=== PATIENT | male | born 1975 | race Hispanic/Latino ===

== ENCOUNTER 2017-05-20 01:38 | Emergency (ER) | payer OTHER ==
--- NOTE | 2017-05-20 02:25 | Emergency Department Report ---
HPI - General Time Seen by Provider: 05/20/17 02:02 - HPI HPI: This is a 41-year-old male who presents to the emergency department by EMS from home after he attempted to overdose on Flexeril and Tylenol. He took about 15 Flexeril pills and about 20 Tylenol pills at about 1:00 with the intent to harm himself. The patient is very sleepy when he arrives but is arousable and alert once woken up and says that his "girlfriend left me." There is no apparent other past medical history. He denies any alcohol or illicit drug use in combination with these medications. He did not receive anything for his symptoms in route. ED Past Medical Hx - Past Medical History Hx Hypertension: Yes Hx Diabetes: Yes (type 2) Additional medical history: high cholesterol - Surgical History Additional Surgical History: tonsils - Social History Smoking Status: Current Every Day Smoker Substance Use Type: Methamphetamines - Medications Home Medications: Home Medications Medication Instructions Recorded Confirmed Last Taken Type No Known Home Medications [No 05/20/17 05/20/17 Unknown History Reported Home Medications] ED Review of Systems ROS: Stated complaint: OVERDOSE Other details as noted in HPI Comment: All other systems reviewed and negative Constitutional: denies: chills, fever Eyes: denies: eye pain, eye discharge, vision change ENT: denies: ear pain, throat pain Respiratory: denies: cough, shortness of breath, wheezing Cardiovascular: denies: chest pain, palpitations Gastrointestinal: denies: abdominal pain, nausea, diarrhea Genitourinary: denies: urgency, dysuria Musculoskeletal: denies: back pain, joint swelling, arthralgia Skin: denies: rash, lesions Neurological: denies: headache, weakness, paresthesias Psychiatric: depression, suicidal thoughts. denies: auditory hallucinations, visual hallucinations, homicidal thoughts Physical Exam - Physical Exam Vital Signs: Vital Signs 05/20/17 02:03 Temperature 98.4 F Pulse Rate 90 Respiratory 18 Rate Blood Pressure 142/85 [Right] O2 Sat by Pulse 96 Oximetry Physical Exam: GENERAL: The patient is well-developed well-nourished. HENT: Normocephalic. Atraumatic. Patient has moist mucous membranes. EYES: Extraocular motions are intact. Pupils equal reactive to light bilaterally. NECK: Supple. Trachea is midline. CHEST/LUNGS: Clear to auscultation. There is no respiratory distress noted. HEART/CARDIOVASCULAR: Regular. There is no tachycardia. There is no gallop rub or murmur. ABDOMEN: Abdomen is soft, nontender. Patient has normal bowel sounds. There is no abdominal distention. Obese habitus. SKIN: Skin is warm and dry. NEURO: The patient is very fatigued and is sleeping but is arousable to any verbal stimuli and once awake is AAO 3 and able to answer questions appropriately. Once he has done answering questions, or if there is no further stimulation, the patient will go back to sleep. He is able to follow commands. Withdraws from painful stimuli. MUSCULOSKELETAL: There is no tenderness or deformity. There is no limitation range of motion. There is no evidence of acute injury. ED Course Vital Signs 05/20/17 02:03 Temperature 98.4 F Pulse Rate 90 Respiratory 18 Rate Blood Pressure 142/85 [Right] O2 Sat by Pulse 96 Oximetry ED Medical Decision Making - Lab Data Result diagrams: 05/20/17 02:22 05/20/17 02:22 - EKG Data -: EKG Interpreted by Ri EKG shows normal: sinus rhythm, axis, intervals, QRS complexes, ST-T waves ( flattened T waves) Rate: normal - EKG Data When compared to previous EKG there are: no significant change Interpretation: unchanged when compared t (10/05/16) - Medical Decision Making 41-year-old male presents after a suicide attempt by trying to take an excessive amount of Flexeril and Tylenol. He is very fatigued and/or sleepy but is easily arousable to verbal stimuli and otherwise cognizant, able to answer questions appropriately. Vital signs stable throughout his ED course. We called poison control who did not recommend any charcoal administration. He had a 2 hour Tylenol level of 75, a 4 hour Tylenol level of 45. As per poison control we will get a 9 hour level but overall the patient's Tylenol level is declining and therefore does not appear to require Acetadote. He has been reevaluated multiple times over multiple hours and he is even more awake and alert, texting on his phone. The rest of his labs are mostly unremarkable except for a urine drug screen that is positive for amphetamines. He has been made a 1013 secondary to his depression and suicidal ideation and attempt. He appears medically cleared for psychiatric placement. - Differential Diagnosis acetaminophen overdose, depression, bipolar disorder, substance abuse Critical Care Time: No Critical care attestation.: If time is entered above; I have spent that time in minutes in the direct care of this critically ill patient, excluding procedure time. ED Disposition Clinical Impression: Hypertension Qualifiers: Hypertension type: essential hypertension Qualified Code(s): I10 - Essential ( primary) hypertension Depression Qualifiers: Depression Type: unspecified Qualified Code(s): F32.9 - Major depressive disorder, single episode, unspecified Suicide attempt by acetaminophen overdose Qualifiers: Encounter type: initial encounter Qualified Code(s): T39.1X2A - Poisoning by 4- Aminophenol derivatives, intentional self-harm, initial encounter Overdose by acetaminophen Qualifiers: Encounter type: initial encounter Injury intent: intentional self-harm Qualified Code(s): T39.1X2A - Poisoning by 4-Aminophenol derivatives, intentional self-harm, initial encounter Overdose of muscle relaxant Qualifiers: Encounter type: initial encounter Injury intent: intentional self-harm Qualified Code(s): T48.202A - Poisoning by unspecified drugs acting on muscles, intentional self-harm, initial encounter Disposition: DC/TX-65 PSY HOSP/PSY UNIT Is pt being admited?: No Condition: Stable Instructions: Hypertension (ED) Referrals: PRIMARY CARE [Primary Care Provider] - 3-5 Days Time of Disposition: 05:57
[2017-05-20 02:38] LABS: Basophils % (Auto) 0.9 % (0.0-1.8); Eosinophils % (Auto) 1.4 % (0.0-4.3); Hematocrit 45.5 % (35.5-45.6); Hemoglobin 15.5 gm/dl (11.8-15.2); Mean Corpuscular HGB Conc 34 % (32-34); Mean Corpuscular Hemoglobin 30 pg (28-32); Mean Corpuscular Volume 87 fl (84-94); Platelet Count 188 K/mm3 (140-440); Red Blood Count 5.21 M/mm3 (3.65-5.03); Red Cell Distribution Width 12.8 % (13.2-15.2); White Blood Count 8.3 K/mm3 (4.5-11.0)
[2017-05-20 02:57] LABS: Alanine Aminotransferase 30 units/L (7-56); Albumin 3.8 g/dL (3.9-5); Albumin/Globulin Ratio 1.4 %; Alkaline Phosphatase 87 units/L (35-129); Anion Gap 19 mmol/L; BUN/Creatinine Ratio 23; Blood Urea Nitrogen 14 mg/dL (9-20); Calcium 8.7 mg/dL (8.4-10.2); Carbon Dioxide 24 mmol/L (22-30); Chloride 98.9 mmol/L (98-107); Glucose 196 mg/dL (75-100); Potassium 3.8 mmol/L (3.6-5.0); Sodium 138 mmol/L (137-145); Total Protein 6.6 g/dL (6.3-8.2)
[2017-05-20 02:59] LABS: INR 0.94 (0.87-1.13)
[2017-05-20 03:00] LABS: Partial Thromboplastin Time 26.4 Sec. (24.2-36.6)
[2017-05-20] MEDS ORDERED: NACL 0.9% 1000 ML 1,000 ML IV ONE (03:01)
[2017-05-20 04:31] LABS: Urine Drugs of Abuse Note Disclamer
[2017-05-20 04:49] LABS: Bilirubin,Urine SM (Negative); Blood,Urine NEG (Negative); Ketones,Urine TR mg/dL (Negative); Leukocyte Esterase,Urine TR (Negative); Mucus,Urine FEW /HPF; Nitrite,Urine NEG (Negative); Urobilinogen,Urine < 2.0 mg/dL (<2.0); WBC,Urine < 1.0 /HPF (0.0-6.0)
[2017-05-20 11:23] LABS: Alanine Aminotransferase 26 units/L (7-56); Albumin 3.6 g/dL (3.9-5); Albumin/Globulin Ratio 1.7 %; Alkaline Phosphatase 74 units/L (35-129); Total Protein 5.7 g/dL (6.3-8.2)
[2017-05-20 11:25] LABS: Bilirubin,Direct < 0.2 mg/dL (0-0.2)
[2017-05-21] MEDS ORDERED: MOTRIN PO ONE ×2 (14:00→14:01)
[2017-05-22 11:56] VITALS: BP 141/87
--- NOTE | 2017-05-22 12:31 | Consultation ---
History of Present Illness - Reason for Consult Consult date: 05/22/17 Reason for consult: Mental Health Evaluation Requesting physician: DONNY AUSTIN - Chief Complaint Chief complaint: "I was upset" - History of Present Psychiatric Illness This is a 41-year-old male who presents to the emergency department by EMS from home after he attempted to overdose on Flexeril and Tylenol. Today patient is irritable during the assessment. He stated that he should not be here. He stated that he did take multiple flexeril and tylenol because he got into an argument with his girlfriend. He stated that they broke up and he found out that she had sex with his friend. He stated once he find out about her having sex with his friend, he wanted to commit suicide. He stated over the last few weeks, they were having problems in their relationship. He stated that he felt "alone and hopeless" for weeks since the break up. He stated that they were living with her father, but had to move recently. He stated that her father does not want to take care of them anymore. He felt like his life was "over" recently, per the patient. He denies SI/HI's and AVH's. He denies sleep disturbance and a poor appetite. He stated that he uses "meth" often. He denies excessive alcohol consumption (etoh). He stated that he does not want to take any medications. Medications and Allergies Allergies Allergy/AdvReac Type Severity Reaction Status Date / Time No Known Allergies Allergy Verified 10/05/16 04:29 Home Medications Medication Instructions Recorded Confirmed Last Taken Type No Known Home Medications [No 05/20/17 05/20/17 Unknown History Reported Home Medications] Past psychiatric history - Past Medical History Past Medical History: diabetes, hypertension Past Surgical History: No surgical history - past Psychiatric treatment and history psychiatric treatment history: Denies a psy hx. Denies a fam psy hx. - Social History Social history: other (10th grade education, reside in a hotel) Mental Status Exam - Vital signs Last Vital Signs Temp 98.8 F 05/22/17 10:00 Pulse 110 H 05/22/17 10:00 Resp 28 H 05/22/17 10:00 BP 141/87 05/22/17 10:00 Pulse Ox 96 05/22/17 10:00 - Exam Narrative exam: MSE: Appearance: cooperative Behavior: regular eye contact Speech: regular rate and tone Mood: irritated Affect: congruent to mood Thought Process: circumstantial Thought Content: denies SI/HI's and AVH's Motor Activity: ambulatory Cognition: A/O x 3 Insight: variable Judgment: variable Results Result Diagrams: 05/20/17 02:22 05/20/17 02:22 All other labs normal. Assessment and Plan Assessment and plan: Impression: MDD severe type. Substance Use DO (amphetamines). Today patient is irritable during the assessment. He minimizes his actions. DDx: R/O Bipolar, Substance Induced Mood DO Recommendation/Plan: Continue 1013. Gather collateral to help determine proper dispo. Discussed risk/benefits of antidepressants.
[2017-05-22] MEDS ORDERED: GLUCOTROL PO ONE (14:00)
== END 2017-05-22 13:37 ==
LOC: EEVIPCON 01:38 → ED 01:38
DX: T39.1X2A Poisoning by 4-Aminophenol derivatives, intentional self-harm, initial encounter (principal); T48.202A Poisoning by unspecified drugs acting on muscles, intentional self-harm, initial encounter; F32.9 Major depressive disorder, single episode, unspecified; I10 Essential (primary) hypertension; E11.9 Type 2 diabetes mellitus without complications; E78.5 Hyperlipidemia, unspecified; F17.200 Nicotine dependence, unspecified, uncomplicated
CPT/HCPCS: 36415; 80053; 80074; 80307; 81001; 85025; 85610; 85730; 93005; 93010; 96360; 99285; G0480; 80320; 82962; J1815

== ENCOUNTER 2017-08-14 06:22 | Emergency (ER) | payer OTHER ==
[2017-08-14 06:56] VITALS: BP 173/105
[2017-08-14 07:55] LABS: Basophils # (Auto) 0.1 K/mm3 (0.0-0.1); Basophils % (Auto) 0.5 % (0.0-1.8); Eosinophils # (Auto) 0.1 K/mm3 (0.0-0.4); Eosinophils % (Auto) 0.8 % (0.0-4.3); Hematocrit 47.2 % (35.5-45.6); Hemoglobin 15.5 gm/dl (11.8-15.2); Lymphocytes # (Auto) 3.4 K/mm3 (1.2-5.4); Lymphocytes % (Auto) 25.6 % (13.4-35.0); Mean Corpuscular HGB Conc 33 % (32-34); Mean Corpuscular Hemoglobin 29 pg (28-32); Mean Corpuscular Volume 88 fl (84-94); Monocytes # (Auto) 0.6 K/mm3 (0.0-0.8); Monocytes % (Auto) 4.8 % (0.0-7.3); Platelet Count 238 K/mm3 (140-440); Red Blood Count 5.36 M/mm3 (3.65-5.03); Red Cell Distribution Width 12.7 % (13.2-15.2)
[2017-08-14 08:15] LABS: BUN/Creatinine Ratio 23; Blood Urea Nitrogen 16 mg/dL (9-20); Calcium 9.2 mg/dL (8.4-10.2); Hemolysis Index 18
--- NOTE | 2017-08-14 09:02 | XRay Report ---
ROUTINE CHEST, TWO VIEWS: HISTORY: Shortness of breath. The trachea, heart, mediastinal contour, lung loyd and bony thorax are unremarkable. IMPRESSION: Unremarkable chest x-ray.
== END 2017-08-14 16:17 | disposition left against medical advice (07) ==
LOC: ED 06:22
DX: J02.9 Acute pharyngitis, unspecified (principal); Z53.21 Procedure and treatment not carried out due to patient leaving prior to being seen by health care provider
CPT/HCPCS: 36415; 71020; 80048; 82962; 85025; 93005; 93010

== ENCOUNTER 2018-01-01 10:22 | Emergency (ER) | payer SELFPAY ==
[2018-01-01 10:29] VITALS: BP 156/104
[2018-01-01] MEDS ORDERED: NORCO 5/325 PO ONE (12:53)
[2018-01-01] MEDS ORDERED: TORADOL IM ONE (12:53)
--- NOTE | 2018-01-01 13:47 | Emergency Department Report ---
ED Extremity Problem HPI - General Chief complaint: Extremity Injury, Lower Stated complaint: SEVERE LEFT LEG PAIN Time Seen by Provider: 01/01/18 13:00 Source: patient Mode of arrival: Ambulatory Limitations: No Limitations - History of Present Illness Initial comments: 42-year-old male with a past medical history diabetes, hypertension, and elevated cholesterol presents to the hospital complaining of left lower back and groin pain 4-5 days. Pain is aching and constant and worse with movement, palpation, and standing. Pain is rated 8/10 in intensity. Patient denies nausea , vomiting, dysuria, hematuria, rash, fever, numbness, or weakness. No trauma reported. Patient denies leg edema or calf tenderness. He is concerned he is concerned because he has dilated superficial veins. Severity scale (0 -10): 5 - Related Data Home Medications Medication Instructions Recorded Confirmed Last Taken No Known Home Medications [No 05/20/17 05/20/17 Unknown Reported Home Medications] Allergies Allergy/AdvReac Type Severity Reaction Status Date / Time No Known Allergies Allergy Verified 10/05/16 04:29 ED Review of Systems ROS: Stated complaint: SEVERE LEFT LEG PAIN Other details as noted in HPI Comment: All other systems reviewed and negative ED Past Medical Hx - Past Medical History Previous Medical History?: Yes Hx Hypertension: Yes Hx Diabetes: Yes (type 2) Additional medical history: high cholesterol - Surgical History Past Surgical History?: Yes Additional Surgical History: tonsils - Social History Smoking Status: Current Every Day Smoker Substance Use Type: Alcohol - Medications Home Medications: Home Medications Medication Instructions Recorded Confirmed Last Taken Type No Known Home Medications [No 05/20/17 05/20/17 Unknown History Reported Home Medications] ED Physical Exam - General Limitations: No Limitations - Other Other exam information: General: No limitations, patient is alert in no acute distress Head exam: Atraumatic, normocephalic Eyes exam: Normal appearance, pupils equal reactive to light, extraocular movements intact ENT: Moist mucous membrane, normal oropharynx Neck exam: Normal inspection, full range of motion, no meningismus nontender Respiratory exam: Clear to auscultation bilateral, no wheezes, rales, crackles Cardiovascular: Normal rate and rhythm, normal heart sounds Abdomen: Soft, nondistended, and nontender, with normal bowel sounds, no rebound, or guarding Extremity: Full range of motion normal inspection no deformity. Left inguinal pain. No subcutaneous lymphadenopathy. : No penile discharge or scrotal tenderness Back: Normal Inspection, full range of motion, left lower back tenderness Neurologic: Alert, oriented x3, cranial nerves intact, no motor or sensory deficit Psychiatric: normal affect, normal mood Skin: Warm, dry, intact, no rash, abscess, or erythema ED Course Vital Signs 01/01/18 01/01/18 01/01/18 10:25 12:09 13:01 Temperature 97.5 F L Pulse Rate 100 H Respiratory 20 18 18 Rate Blood Pressure 156/104 O2 Sat by Pulse 99 Oximetry 01/01/18 13:02 Temperature Pulse Rate Respiratory 18 Rate Blood Pressure O2 Sat by Pulse Oximetry ED Medical Decision Making - Lab Data Lab Results 01/01/18 01/01/18 Range/Units 10:34 13:25 POC Glucose 146 H (70-105) Urine Color Yellow (Yellow) Urine Turbidity Clear (Clear) Urine pH 5.0 (5.0-7.0) Ur Specific [place] 1.024 (1.003-1.030) Urine Protein <15 mg/dl (Negative) mg/dL Urine Glucose (UA) 50 (Negative) mg/dL Urine Ketones Neg (Negative) mg/dL Urine Blood Neg (Negative) Urine Nitrite Neg (Negative) Urine Bilirubin Neg (Negative) Urine Urobilinogen < 2.0 (<2.0) mg/dL Ur Leukocyte Esterase Neg (Negative) Urine WBC (Auto) 7.0 H (0.0-6.0) /HPF Urine RBC (Auto) 7.0 (0.0-6.0) /HPF U Epithel Cells (Auto) < 1.0 (0-13.0) /HPF Urine Mucus Few /HPF - Medical Decision Making Patient received [place] and Toradol symptoms likely secondary to muscle strain. Very mild elevation in urine and RBC without urinary symptoms. Patient eloped prior to urine result was called by staff and states he will be returning but patient did not return. - Differential Diagnosis muscle strain, radiculopathy, renal colic, infection, lymphadenopathy Critical Care Time: No Critical care attestation.: If time is entered above; I have spent that time in minutes in the direct care of this critically ill patient, excluding procedure time. ED Disposition Clinical Impression: Strain of left inguinal muscle, Low back strain Disposition: ELOPED Is pt being admited?: No Condition: Stable Time of Disposition: 14:00
[2018-01-01 14:38] LABS: Bilirubin,Urine NEG (Negative); Blood,Urine NEG (Negative); Color,Urine Yellow (Yellow); Mucus,Urine FEW /HPF; Protein,Urine <15 mg/dL mg/dL (Negative); Urobilinogen,Urine < 2.0 mg/dL (<2.0)
== END 2018-01-01 19:06 | disposition left against medical advice (07) ==
LOC: ED 10:22
DX: S39.011A Strain of muscle, fascia and tendon of abdomen, initial encounter (principal); S39.012A Strain of muscle, fascia and tendon of lower back, initial encounter; I10 Essential (primary) hypertension; E11.9 Type 2 diabetes mellitus without complications; E78.00 Pure hypercholesterolemia, unspecified; F17.200 Nicotine dependence, unspecified, uncomplicated; X58.XXXA Exposure to other specified factors, initial encounter; Y93.89 Activity, other specified; Y92.89 Other specified places as the place of occurrence of the external cause; Y99.8 Other external cause status
CPT/HCPCS: 81001; 82962; 96372; 99283; J1885

== ENCOUNTER 2018-05-19 19:06 | Inpatient (IN) | payer MEDICARE, OTHER ==
[2018-05-19 20:17] LABS: Basophils # (Auto) 0.1 K/mm3 (0.0-0.1); Basophils % (Auto) 0.6 % (0.0-1.8); Eosinophils # (Auto) 0.2 K/mm3 (0.0-0.4); Eosinophils % (Auto) 1.7 % (0.0-4.3); Hematocrit 40.1 % (35.5-45.6); Hemoglobin 13.4 gm/dl (11.8-15.2); Lymphocytes # (Auto) 3.3 K/mm3 (1.2-5.4); Lymphocytes % (Auto) 25.8 % (13.4-35.0); Mean Corpuscular HGB Conc 34 % (32-34); Mean Corpuscular Hemoglobin 30 pg (28-32); Mean Corpuscular Volume 88 fl (84-94); Monocytes # (Auto) 0.8 K/mm3 (0.0-0.8); Monocytes % (Auto) 6.1 % (0.0-7.3); Platelet Count 214 K/mm3 (140-440); Red Blood Count 4.55 M/mm3 (3.65-5.03); Red Cell Distribution Width 12.9 % (13.2-15.2)
[2018-05-19] MEDS ORDERED: MORPHINE IV ONE (20:31)
[2018-05-19] MEDS ORDERED: ATIVAN IV ONE (20:31)
[2018-05-19] MEDS ORDERED: ZOFRAN IV ONE (20:31)
[2018-05-19] MEDS ORDERED: NITRO-BID 2% TP ONE (20:31)
[2018-05-19 20:56] LABS: BUN/Creatinine Ratio 19; Blood Urea Nitrogen 15 mg/dL (9-20); Calcium 9.1 mg/dL (8.4-10.2); Hemolysis Index 5
--- NOTE | 2018-05-19 20:56 | Emergency Department Report ---
HPI - General Chief Complaint: Dyspnea/Respdistress Time Seen by Provider: 05/19/18 19:58 - HPI HPI: Room 4 The patient is a 42-year-old male presenting with a chief complaint of chest pain and shortness of breath. The patient states she used some methamphetamines this morning orally and 5 6 hours later began developing left- sided chest pain associated with shortness of breath and nausea. Patient denies vomiting but admits to diaphoresis with this chest pain. Patient states he's had tingling in his feet. Patient gives his pain is scored 7-8/10. Patient states his last stress test was over 5 years ago but has never had a cardiac catheterization Location: [See above] Duration: [See above] Quality: Pain Severity: 7-8/10 Modifying factors: [see above] Context: [see above] Mode of transportation: [not driving] ED Past Medical Hx - Past Medical History Previous Medical History?: Yes Hx Hypertension: Yes Hx Diabetes: Yes (type 2) Additional medical history: high cholesterol - Surgical History Past Surgical History?: Yes Additional Surgical History: tonsils - Family History Family history: no significant - Social History Smoking Status: Current Every Day Smoker (1.5 pack per day) Substance Use Type: Alcohol (occasional), Methamphetamines (orally) - Medications Home Medications: Home Medications Medication Instructions Recorded Confirmed Last Taken Type No Known Home Medications [No 05/19/18 05/19/18 Unknown History Reported Home Medications] ED Review of Systems ROS: Stated complaint: DIFFICULTY BREATHING Other details as noted in HPI Constitutional: diaphoresis Eyes: denies: eye pain ENT: denies: throat pain Respiratory: shortness of breath Cardiovascular: chest pain Endocrine: no symptoms reported Gastrointestinal: nausea. denies: abdominal pain, vomiting Genitourinary: denies: dysuria Musculoskeletal: denies: back pain Neurological: paresthesias Physical Exam - Physical Exam Vital Signs: Vital Signs 05/19/18 19:50 Temperature 99.3 F Pulse Rate 115 H Respiratory 24 Rate Blood Pressure 122/80 Blood Pressure 122/80 [Left] O2 Sat by Pulse 97 Oximetry Physical Exam: GENERAL: The patient is well-developed well-nourished male sitting on a stretcher appearing fidgety. [] HEENT: Normocephalic. Atraumatic. Extraocular motions are intact. Patient has moist mucous membranes. NECK: Supple. Trachea midline CHEST/LUNGS: Clear to auscultation. There is no respiratory distress noted. HEART/CARDIOVASCULAR: Regular. There is tachycardia. There is no gallop rub or murmur. ABDOMEN: Abdomen is soft, nontender. Patient has normal bowel sounds. There is no abdominal distention. SKIN: There is no rash. There is no edema. There is no diaphoresis. NEURO: The patient is awake, alert, and oriented. The patient is cooperative. The patient has normal speech MUSCULOSKELETAL: There is no evidence of acute injury. ED Course Vital Signs 05/19/18 19:50 Temperature 99.3 F Pulse Rate 115 H Respiratory 24 Rate Blood Pressure 122/80 Blood Pressure 122/80 [Left] O2 Sat by Pulse 97 Oximetry ED Medical Decision Making - Lab Data Result diagrams: 05/19/18 20:00 Laboratory Tests 05/19/18 05/19/18 05/19/18 20:00 20:00 20:06 WBC 12.7 H RBC 4.55 Hgb 13.4 Hct 40.1 MCV 88 MCH 30 MCHC 34 RDW 12.9 L Plt Count 214 Lymph % (Auto) 25.8 [place] % (Auto) 6.1 Eos % (Auto) 1.7 Baso % (Auto) 0.6 Lymph # 3.3 [place] # 0.8 Eos # 0.2 Baso # 0.1 Seg Neutrophils % 65.8 Seg Neutrophils # 8.4 H Sodium 143 Potassium 3.2 L Chloride 106.6 Carbon Dioxide 22 Anion Gap 18 BUN 15 Creatinine 0.8 Estimated GFR > 60 BUN/Creatinine Ratio 19 Glucose 152 H Calcium 9.1 Total Creatine Kinase 701 H CK-MB (CK-2) 4.8 H CK-MB (CK-2) Rel Index 0.6 Troponin T < 0.010 - EKG Data -: EKG Interpreted by Me EKG shows normal: sinus rhythm Rate: tachycardia (112 bpm) - EKG Data When compared to previous EKG there are: previous EKG unavailable Interpretation: nonspecific ST-T wave jimbo (plan T waves in leads 2, V3, flat biphasic T waves in leads V4, V5, V6) - Radiology Data Radiology results: report reviewed (chest x-ray), image reviewed (chest x-ray) interpreted by me: Chest x-ray-no focal infiltrates, no pneumothorax [facility] [address] [place] [address] XRay Report Signed Patient: REMBERTO CHRISTIANSON MR#: [id number] : 1975 Acct:[id number] Age/Sex: 42 / M ADM Date: 05/19/18 Loc: ED Attending Dr: Ordering Physician: CHRISTOS CALDWELL MD Date of Service: 05/19/18 Procedure(s): XR chest routine 2V Accession Number(s): [id number] cc: CHRISTOS CALDWELL MD Fluoro Time In Minutes: FINAL REPORT PROCEDURE: Chest. TECHNIQUE: AP and lateral views. HISTORY: Shortness of breath . COMPARISON: No prior studies are available for comparison. FINDINGS: The heart and mediastinum appear normal. The lungs are clear and well expanded. There are no pleural effusions. The soft tissues and regional skeleton are unremarkable. IMPRESSION: No evidence of acute disease. Transcribed By: MRM Dictated By: RUBY LASSITER MD Electronically Authenticated By: RUBY LASSITER MD Signed Date/Time: 05/19/182052 DD/ 52 TD/TT: 05/19/182052 - Differential Diagnosis ACS, pericarditis, methamphetamine induced chest pain Critical care attestation.: If time is entered above; I have spent that time in minutes in the direct care of this critically ill patient, excluding procedure time. ED Disposition Clinical Impression: Chest pain, Methamphetamine abuse, Shortness of breath Disposition: OP ADMIT IP TO THIS HOSP Is pt being admited?: Yes Does the pt Need Aspirin: Yes Condition: Fair Instructions: Chest Pain (ED) Time of Disposition: 21:40 (hospitalist paged (Dr Martin))
[2018-05-19 21:37] LABS: Creatine Kinase MB 4.8 ng/mL (0.0-4.0)
[2018-05-19] MEDS ORDERED: ASPIRIN PO ONE (21:40)
[2018-05-19] MEDS ORDERED: SODIUM CHLORIDE FLUSH SYRINGE 10 ML IV PRN (23:08)
[2018-05-19] MEDS ORDERED: MORPHINE IV PRN (23:08)
[2018-05-19] MEDS ORDERED: APRESOLINE IV PRN (23:08)
--- NOTE | 2018-05-19 23:17 | History and Physical Report ---
History of Present Illness Date of examination: 05/19/18 Date of admission: 05/19/9018 Chief complaint: chest pain and shortness of breath. History of present illness: Pt is a 42 y.o. white male with PMHx of DM type 2, HTN, hyperlipidemia, amphetamine use disorder and chronic pain who presents to the ER with c/o chest pain and SOB x1 day. Pt states that the pain is located on the left side of the chest, level 7-8/10, associated with SOB and nausea. Patient denies radiation of the pain or vomiting but admits to diaphoresis, palpitation with the chest pain. According to the ER, pt admits to taking amphetamine today and the pain started 5-6hrs after ingestion. Pt admits to previous h/o chest pain and a stress test about 5 years ago, denies family history of heart disease. Past History Past Medical History: diabetes, hypertension, hyperlipidemia Past Surgical History: tonsillectomy Social history: other Family history: no significant family history Medications and Allergies Allergies Allergy/AdvReac Type Severity Reaction Status Date / Time No Known Allergies Allergy Verified 10/05/16 04:29 Home Medications Medication Instructions Recorded Confirmed Last Taken Type No Known Home Medications [No 05/19/18 05/19/18 Unknown History Reported Home Medications] Review of Systems Constitutional: sweats Cardiovascular: chest pain, shortness of breath Respiratory: shortness of breath Exam - Constitutional Vitals: Temp Pulse Resp BP Pulse Ox 99.3 F 114 H 26 H 122/72 99 05/19/18 19:50 05/19/18 21:10 05/19/18 21:00 05/19/18 21:10 05/19/18 21:00 - EENT Eyes: Present: EOM intact ENT: hearing intact - Neck Neck: Present: normal ROM - Respiratory Respiratory effort: normal Respiratory: bilateral: CTA - Cardiovascular Rhythm: regular - Extremities Extremities: pulses symmetrical, No edema, normal color - Abdominal Male genitourinary: Present: deferred - Rectal Rectal Exam: deferred - Integumentary Integumentary: Present: warm - Musculoskeletal Musculoskeletal: strength equal bilaterally, generalized weakness - Psychiatric Psychiatric: cooperative - Neurologic Neurologic: moves all extremities Results - Labs CBC & Chem 7: 05/19/18 23:38 05/19/18 23:38 Labs: Laboratory Last Values WBC 12.7 K/mm3 (4.5-11.0) H 05/19/18 20:00 RBC 4.55 M/mm3 (3.65-5.03) 05/19/18 20:00 Hgb 13.4 gm/dl (11.8-15.2) 05/19/18 20:00 Hct 40.1 % (35.5-45.6) 05/19/18 20:00 MCV 88 fl (84-94) 05/19/18 20:00 MCH 30 pg (28-32) 05/19/18 20:00 MCHC 34 % (32-34) 05/19/18 20:00 RDW 12.9 % (13.2-15.2) L 05/19/18 20:00 Plt Count 214 K/mm3 (140-440) 05/19/18 20:00 Lymph % (Auto) 25.8 % (13.4-35.0) 05/19/18 20:00 [place] % (Auto) 6.1 % (0.0-7.3) 05/19/18 20:00 Eos % (Auto) 1.7 % (0.0-4.3) 05/19/18 20:00 Baso % (Auto) 0.6 % (0.0-1.8) 05/19/18 20:00 Lymph # 3.3 K/mm3 (1.2-5.4) 05/19/18 20:00 [place] # 0.8 K/mm3 (0.0-0.8) 05/19/18 20:00 Eos # 0.2 K/mm3 (0.0-0.4) 05/19/18 20:00 Baso # 0.1 K/mm3 (0.0-0.1) 05/19/18 20:00 Seg Neutrophils % 65.8 % (40.0-70.0) 05/19/18 20:00 Seg Neutrophils # 8.4 K/mm3 (1.8-7.7) H 05/19/18 20:00 Sodium 143 mmol/L (137-145) 05/19/18 20:00 Potassium 3.2 mmol/L (3.6-5.0) L 05/19/18 20:00 Chloride 106.6 mmol/L (98-107) 05/19/18 20:00 Carbon Dioxide 22 mmol/L (22-30) 05/19/18 20:00 Anion Gap 18 mmol/L 05/19/18 20:00 BUN 15 mg/dL (9-20) 05/19/18 20:00 Creatinine 0.8 mg/dL (0.8-1.5) 05/19/18 20:00 Estimated GFR > 60 ml/min 05/19/18 20:00 BUN/Creatinine Ratio 19 % 05/19/18 20:00 Glucose 152 mg/dL (75-100) H 05/19/18 20:00 Calcium 9.1 mg/dL (8.4-10.2) 05/19/18 20:00 Total Creatine Kinase 701 units/L (55-170) H 05/19/18 20:06 CK-MB (CK-2) 4.8 ng/mL (0.0-4.0) H 05/19/18 20:06 CK-MB (CK-2) Rel Index 0.6 (0-4) 05/19/18 20:06 Troponin T < 0.010 ng/mL (0.00-0.029) 05/19/18 20:06 Assessment and Plan Assessment and plan: 1. Chest pain r/o cardiac ischemia (possible drug induce) Admit to [facility] Troponin q6hr x 2 more Morphine, Asa qday, Nitro, O2 PRN Repeat EKG PRN for chest pain 2. Hypertension Lopressor BID Monitor BP 3. DM type 2 Accu check ACHS Insulin per sliding scale Hypoglycemia protocol 4. Hyperlipidemia Start Statin DVT prophylaxis with Lovenox Supportive care PRN Tylenol, Zofran Pt condition and plan of care d/w attending Advance Directives: Yes Plan of care discussed with patient/family: Yes
[2018-05-19] MEDS ORDERED: NITROSTAT SL PRN (23:26)
[2018-05-19] MEDS ORDERED: ZOFRAN IV PRN (23:26)
[2018-05-19] MEDS ORDERED: TYLENOL PO PRN (23:27)
[2018-05-19 23:56] LABS: Basophils # (Auto) 0.1 K/mm3 (0.0-0.1); Basophils % (Auto) 0.6 % (0.0-1.8); Eosinophils # (Auto) 0.2 K/mm3 (0.0-0.4); Hematocrit 40.9 % (35.5-45.6); Hemoglobin 13.6 gm/dl (11.8-15.2); Lymphocytes # (Auto) 3.7 K/mm3 (1.2-5.4); Lymphocytes % (Auto) 32.9 % (13.4-35.0); Mean Corpuscular HGB Conc 33 % (32-34); Mean Corpuscular Hemoglobin 30 pg (28-32); Mean Corpuscular Volume 89 fl (84-94); Monocytes # (Auto) 0.7 K/mm3 (0.0-0.8); Monocytes % (Auto) 6.1 % (0.0-7.3); Platelet Count 203 K/mm3 (140-440); Red Blood Count 4.61 M/mm3 (3.65-5.03); Red Cell Distribution Width 12.8 % (13.2-15.2)
[2018-05-20 00:09] LABS: BUN/Creatinine Ratio 22; Blood Urea Nitrogen 13 mg/dL (9-20); Calcium 8.7 mg/dL (8.4-10.2); Hemolysis Index 16
[2018-05-20 00:38] LABS: Creatine Kinase MB 4.1 ng/mL (0.0-4.0)
[2018-05-20] MEDS ORDERED: ZOFRAN IV PRN (01:27)
[2018-05-20] MEDS ORDERED: SODIUM CHLORIDE FLUSH SYRINGE 10 ML IV PRN (01:27)
[2018-05-20 05:59] LABS: Creatine Kinase MB 3.6 ng/mL (0.0-4.0)
[2018-05-20] MEDS: HumuLIN R IV SCH ×4 (07:30→21:48)
[2018-05-20 07:34] LABS: Chol/HDL Ratio 4.58 %
[2018-05-20] MEDS: NITRO-BID 2% TP SCH ×4 (07:35→17:29)
[2018-05-20] MEDS ORDERED: LEXISCAN IV ONE ×2 (08:57→09:55)
[2018-05-20] MEDS: LOPRESSOR PO SCH ×2 (14:17→21:46)
[2018-05-20] MEDS: ECOTRIN PO SCH (14:18)
--- NOTE | 2018-05-20 15:37 | Progress Note ---
Assessment and Plan / Chest pain - ruled out cardiac ischemia (possible drug induce) - negative troponin - cont Morphine, Asa qday, Nitro, O2 PRN - had negative stress test tofay with EF 39% - plan to assess EF with 2d echo /Hypertension - Lopressor BID, Monitor BP /DM type 2 - Accu check ACHS - Insulin per sliding scale - Hypoglycemia protocol /Hyperlipidemia, cont Statin DVT prophylaxis with Lovenox Supportive care Subjective Date of service: 05/20/18 Interval history: Pt seen and examined recently discharged from intermediate denies any chest pain 2d echo pending s/p stress test today Objective - Constitutional Vitals: Vital Signs - 12hr 05/20/18 05/20/18 05/20/18 03:40 03:50 04:00 Temperature Pulse Rate 98 H 99 H 98 H Respiratory 22 24 22 Rate Blood Pressure 149/80 149/80 149/80 Blood Pressure [Left] O2 Sat by Pulse Oximetry 05/20/18 05/20/18 05/20/18 04:17 04:30 07:35 Temperature Pulse Rate 94 H 90 90 Respiratory Rate Blood Pressure 149/80 Blood Pressure [Left] O2 Sat by Pulse 96 Oximetry 05/20/18 05/20/18 05/20/18 08:53 09:33 10:20 Temperature 97.9 F Pulse Rate 90 96 H 105 H Respiratory 20 Rate Blood Pressure 135/82 131/71 Blood Pressure 130/69 [Left] O2 Sat by Pulse Oximetry 05/20/18 05/20/18 05/20/18 10:21 10:22 10:23 Temperature Pulse Rate 105 H 103 H 102 H Respiratory Rate Blood Pressure 141/80 138/75 123/53 Blood Pressure [Left] O2 Sat by Pulse Oximetry 05/20/18 05/20/18 05/20/18 10:24 10:25 11:57 Temperature Pulse Rate 108 H 103 H Respiratory Rate Blood Pressure 136/78 143/85 Blood Pressure [Left] O2 Sat by Pulse 98 Oximetry 05/20/18 05/20/18 12:29 12:53 Temperature 98.0 F 98.4 F Pulse Rate 89 92 H Respiratory 20 20 Rate Blood Pressure 133/83 Blood Pressure 132/70 [Left] O2 Sat by Pulse 95 98 Oximetry General appearance: Present: no acute distress, well-nourished - EENT Eyes: PERRL, EOM intact ENT: hearing intact, clear oral mucosa Ears: bilateral: normal - Neck Neck: supple, normal ROM - Respiratory Respiratory effort: normal Respiratory: bilateral: CTA - Cardiovascular Rhythm: regular Heart Sounds: Present: S1 & S2. Absent: gallop, rub Extremities: pulses intact, No edema, normal color, Full ROM - Gastrointestinal General gastrointestinal: Present: soft, non-tender, non-distended, normal bowel sounds - Integumentary Integumentary: clear, warm, dry - Musculoskeletal Musculoskeletal: 1, strength equal bilaterally - Neurologic Neurologic: moves all extremities - Psychiatric Psychiatric: memory intact, appropriate mood/affect, intact judgment & insight - Labs CBC & Chem 7: 05/19/18 23:38 05/19/18 23:38 Labs: Abnormal lab results 05/19/18 05/19/18 05/19/18 Range/Units 00:00 20:00 20:00 WBC 12.7 H (4.5-11.0) K/mm3 RDW 12.9 L (13.2-15.2) % Seg Neutrophils # 8.4 H (1.8-7.7) K/mm3 Potassium 3.2 L (3.6-5.0) mmol/L Chloride (98-107) mmol/L Creatinine (0.8-1.5) mg/dL Glucose 152 H (75-100) mg/dL POC Glucose (70-105) Total Creatine Kinase 581 H (55-170) units/L CK-MB (CK-2) 4.1 H (0.0-4.0) ng/mL HDL Cholesterol (40-59) mg/dL 05/19/18 05/19/18 05/19/18 Range/Units 20:06 23:38 23:38 WBC 11.3 H (4.5-11.0) K/mm3 RDW 12.8 L (13.2-15.2) % Seg Neutrophils # (1.8-7.7) K/mm3 Potassium 3.4 L (3.6-5.0) mmol/L Chloride 110.1 H (98-107) mmol/L Creatinine 0.6 L (0.8-1.5) mg/dL Glucose 146 H (75-100) mg/dL POC Glucose (70-105) Total Creatine Kinase 701 H (55-170) units/L CK-MB (CK-2) 4.8 H (0.0-4.0) ng/mL HDL Cholesterol (40-59) mg/dL 05/20/18 05/20/18 05/20/18 Range/Units 05:00 05:00 07:26 WBC (4.5-11.0) K/mm3 RDW (13.2-15.2) % Seg Neutrophils # (1.8-7.7) K/mm3 Potassium (3.6-5.0) mmol/L Chloride (98-107) mmol/L Creatinine (0.8-1.5) mg/dL Glucose (75-100) mg/dL POC Glucose 140 H (70-105) Total Creatine Kinase 426 H (55-170) units/L CK-MB (CK-2) (0.0-4.0) ng/mL HDL Cholesterol 24 L (40-59) mg/dL
[2018-05-21] MEDS: NITRO-BID 2% TP SCH ×2 (05:11→09:50)
[2018-05-21] MEDS: LOPRESSOR PO SCH (09:50)
[2018-05-21] MEDS: ECOTRIN PO SCH (09:51)
--- NOTE | 2018-05-21 11:24 | Consultation ---
History of Present Illness Consult date: 05/21/18 Requesting physician: TRACY SAENZ Consult reason: chest pain History of present illness: The pt is a 42 YO male with a past medical history significant for HTN, HLP, DM , TIA, BRANDO, medical noncompliance, amphetamine use, tobacco use. He is previously unknown to our practice. He presented with complaints of chest pain and SOB for 1 day prior to arrival. He states that he was recently released from custodial. He used methampheatmine and then noted the onset of his symptoms. He describes his chest pain as an intermittent, precordial stabbing pain which is currently resolved. He denies any palpitations, n/v, diaphoresis, dizziness or syncope. He underwent lexiscan MPI stress test yesterday which was negative for ischemia, EF 39%. Past History Past Medical History: diabetes, hypertension, hyperlipidemia, other (BRANDO; TIA) Past Surgical History: tonsillectomy Social history: smoking, other (methamphetamine use). denies: alcohol abuse Family history: no significant family history Medications and Allergies Allergies Allergy/AdvReac Type Severity Reaction Status Date / Time No Known Allergies Allergy Verified 10/05/16 04:29 Home Medications Medication Instructions Recorded Confirmed Last Taken Type No Known Home Medications [No 05/19/18 05/19/18 Unknown History Reported Home Medications] Active Meds: Active Medications Acetaminophen (Tylenol) 650 mg PO Q4H PRN PRN Reason: Headache Aspirin (Ecotrin) 325 mg PO QDAY [facility] Last Admin: 05/21/18 09:51 Dose: 325 mg Atorvastatin Calcium (Lipitor) 10 mg PO QHS [facility] Last Admin: 05/20/18 21:46 Dose: 10 mg Hydralazine HCl (Apresoline) 10 mg IV Q6HR PRN PRN Reason: FOR SBP > target Insulin Human Regular (Humulin R) [address] [facility]; Protocol Last Admin: 05/20/18 21:48 Dose: 2 units Metoprolol Tartrate (Lopressor) 25 mg PO BID [facility] Last Admin: 05/21/18 09:50 Dose: 25 mg Morphine Sulfate (Morphine) 2 mg IV Q4H PRN PRN Reason: Chest Pain unrelieved by NTG Nitroglycerin (Nitrostat) 0.4 mg SL .Q5MIN PRN PRN Reason: Chest Pain Nitroglycerin (Nitro-Bid 2%) 0.5 inch TP QIDNTG [facility]; Protocol Last Admin: 05/21/18 09:50 Dose: 0.5 inch Ondansetron HCl (Zofran) 4 mg IV Q8H PRN PRN Reason: Nausea And Vomiting Sodium Chloride (Sodium Chloride Flush Syringe 10 Ml) 10 ml IV PRN PRN PRN Reason: LINE FLUSH Review of Systems Constitutional: no weight loss, no weight gain, no fever, no chills, no sweats Ears, nose, mouth and throat: no ear pain, no nose pain, no sinus pressure, no sinus pain Cardiovascular: chest pain, shortness of breath, high blood pressure, no orthopnea, no palpitations, no rapid/irregular heart beat, no edema, no syncope , no lightheadedness, no leg edema Respiratory: shortness of breath, no cough, no congestion, no wheezing, no pain on inspiration Gastrointestinal: no abdominal pain, no nausea, no vomiting, no diarrhea, no constipation, no change in bowel habits Genitourinary Male: no dysuria, no hematuria, no flank pain, no discharge, no urinary frequency, no urinary hesitancy Musculoskeletal: no neck stiffness, no neck pain, no shooting arm pain, no arm numbness/tingling, no low back pain, no shooting leg pain Integumentary: no rash, no pruritis, no redness, no sores, no wounds Neurological: no head injury, no paralysis, no weakness, no parathesias, no numbness, no tingling, no seizures, no syncope Psychiatric: no anxiety Endocrine: no cold intolerance, no heat intolerance Hematologic/Lymphatic: no easy bruising, no easy bleeding Allergic/Immunologic: no urticaria, no wheezing Physical Examination Vital Signs Temp Pulse Resp BP Pulse Ox 99.3 F 115 H 24 122/80 97 05/19/18 19:50 05/19/18 19:50 05/19/18 19:50 05/19/18 19:50 05/19/18 19:50 General appearance: no acute distress HEENT: Positive: PERRL, Normocephaly, Mucus Membranes Moist Neck: Positive: neck supple, trachea midline Cardiac: Positive: Reg Rate and Rhythm, S1/S2 Lungs: Positive: clear to auscultation Neuro: Positive: Grossly Intact Abdomen: Positive: Soft. Negative: Tender Skin: Positive: Clear. Negative: Rash, Wound Musculoskeletal: No Fluid Collection, No Pain, Normal Range of Motion Extremities: Absent: edema Results 05/19/18 23:38 05/19/18 23:38 - Imaging and Cardiology Echo: report reviewed EKG: report reviewed, image reviewed EKG interpretations - Telemetry EKG Rhythm: Sinus Rhythm - EKG Sinus rhythms and dysrhythmias: sinus rhythm Assessment and Plan Echo reviewed - EF 45-50%. Currently stable cardiac status. Reduce ASA to 81mg daily and increase lipitor to 20mg daily. Cont lopressor. Cessation of illicit drug use and tobacco use encouraged. Also, pt reports history of sleep apnea diagnosis. However, he states he has been unable to afford CPAP. Compliance with CPAP encouraged. D/w case management who will refer pt to [facility]. Nothing further to add from cardiac perspective at this time. Will sign off. Recommend pt follow up in our office with Lacy Fernandez NP, with 1-2 weeks of hospital discharge ([phone]). The patient has been seen in conjunction with Dr. Major who agrees with the assessment and plan of care. - Patient Problems (1) Chest pain Current Visit: Yes Status: Resolved (2) Shortness of breath Current Visit: Yes Status: Resolved (3) Methamphetamine abuse Current Visit: Yes Status: Acute (4) HTN (hypertension) Current Visit: Yes Status: Acute (5) Hyperlipidemia Current Visit: Yes Status: Acute (6) Diabetes Current Visit: Yes Status: Acute (7) History of TIA (transient ischemic attack) Current Visit: Yes Status: Chronic (8) Tobacco use Current Visit: Yes Status: Chronic
[2018-05-21 11:50] VITALS: BP 109/89
[2018-05-21] MEDS ORDERED: AFLURIA QUAD 2018-2019 SYRINGE IM ONE (12:00)
--- NOTE | 2018-05-21 12:42 | Discharge Summary ---
Providers - Providers Date of Admission: 05/20/18 01:27 Date of discharge: 05/21/18 Attending physician: TRACY SAENZ 05/19/18 Consult to Cardiac Rehabilitation [CONS] Routine Reason For Exam: Phase I 05/20/18 10:37 Consult to Cardiology [CONS] Routine Consulting Provider: SARKIS MORGAN Reason For Exam: amphetamine abuse chest pain Primary care physician: BOTTLE DEALER Hospitalization Condition: Fair Hospital course: Echo reviewed - EF 45-50%. Currently stable cardiac status. Reduce ASA to 81mg daily and increase lipitor to 20mg daily. Cont lopressor. Cessation of illicit drug use and tobacco use encouraged. Also, pt reports history of sleep apnea diagnosis. However, he states he has been unable to afford CPAP. Compliance with CPAP encouraged. D/w case management who will refer pt to [facility]. Nothing further to add from cardiac perspective at this time. Will sign off. Recommend pt follow up with Lacy Fernandez NP, with 1-2 weeks of hospital discharge ([phone]). Discharge diagnosis: (1) Chest pain, likely GERD Current Visit: Yes Status: Resolved (2) Methamphetamine abuse Current Visit: Yes Status: Acute (3) HTN (hypertension) Current Visit: Yes Status: Acute (4) Hyperlipidemia Current Visit: Yes Status: Acute (5) Diabetes Current Visit: Yes Status: Acute (6) History of TIA (transient ischemic attack) Current Visit: Yes Status: Chronic (7) Tobacco use Current Visit: Yes Status: Chronic (8) Ger Current Visit: Yes Status: Chronic Disposition: DC-01 TO HOME OR SELFCARE Time spent for discharge: 32 minutes Core Measure Documentation - Palliative Care Palliative Care/ Comfort Measures: Not Applicable - Core Measures Any of the following diagnoses?: none Exam - Constitutional Vitals: Temp Pulse Resp BP Pulse Ox 98.2 F 98 H 18 109/89 100 05/21/18 10:00 05/21/18 10:00 05/21/18 10:00 05/21/18 10:00 05/21/18 10:50 General appearance: Present: no acute distress, well-nourished - EENT Eyes: Present: PERRL ENT: hearing intact, clear oral mucosa - Neck Neck: Present: supple, normal ROM - Respiratory Respiratory effort: normal Respiratory: bilateral: CTA - Cardiovascular Heart Sounds: Present: S1 & S2. Absent: rub, click - Extremities Extremities: pulses symmetrical, No edema Peripheral Pulses: within normal limits - Abdominal General gastrointestinal: Present: soft, non-tender, non-distended, normal bowel sounds - Integumentary Integumentary: Present: clear, warm, dry - Musculoskeletal Musculoskeletal: gait normal, strength equal bilaterally - Psychiatric Psychiatric: appropriate mood/affect, intact judgment & insight - Neurologic Neurologic: CNII-XII intact, moves all extremities Plan Activity: advance as tolerated Weight Bearing Status: Weight Bear as Tolerated Diet: low fat, low salt Additional Instructions: f/u at cardiology office in one week. Follow up with: PRIMARY CARE, [Primary Care Provider] - 3-5 Days Prescriptions: AtorvaSTATin [Lipitor] 20 mg PO QHS #30 tablet Aspirin [Aspirin BABY CHEW TAB] 81 mg PO QDAY #30 tab.chew metFORMIN [Glucophage] 500 mg PO BID #60 tablet Metoprolol [Lopressor TAB] 25 mg PO BID #30 tablet Pantoprazole [Protonix TAB] 20 mg PO QDAY #30 tablet.
[2018-05-22] MEDS ORDERED: BABY ASPIRIN PO SCH (10:00)
== END 2018-05-21 13:18 | disposition home or self-care (01) | DRG 392 ==
LOC: ED 19:06 → 4A 05-20 01:27
PROVIDERS: ADMIT Internal Medicine; ATTEND Internal Medicine
DX: K21.9 Gastro-esophageal reflux disease without esophagitis (principal); F15.10 Other stimulant abuse, uncomplicated; I10 Essential (primary) hypertension; F17.200 Nicotine dependence, unspecified, uncomplicated; G47.33 Obstructive sleep apnea (adult) (pediatric); E78.5 Hyperlipidemia, unspecified; G89.29 Other chronic pain; E11.9 Type 2 diabetes mellitus without complications; Z72.89 Other problems related to lifestyle; Z86.73 Personal history of transient ischemic attack (TIA), and cerebral infarction without residual deficits
CPT/HCPCS: 36415; 71046; 78452; 80048; 80061; 82550; 82553; 82962; 84484; 85025; 90686; 93005; 93010; 93017; 93306; 96374; 96375; A9270-GY; A9502; J1815; J2060; J2270; J2405; J2785